=== PATIENT | female | born 1975 | race Two or more races ===

== ENCOUNTER 2022-12-30 12:22 | Inpatient (IN) | payer OTHER ==
[~2022-12-30] VITALS: Ht 162.6 cm; Wt 53.8 kg
[2022-12-30] MEDS ORDERED: SODIUM CHLORIDE 0.9% 1,000 ML IV ONE ×2 (14:30→20:00)
[2022-12-30] MEDS ORDERED: ACETAMINOPHEN 1000 MG/ISO-OSM 100 ML IV ONE (14:30)
[2022-12-30 14:53] LABS: BASOPHILS % (AUTO) 0.7 % (0.0-2.0); EOSINOPHILS % (AUTO) 0.2 % (1.0-6.0); HEMATOCRIT 24.7 % (36-46); HEMOGLOBIN 7.6 g/dL (12.0-16.0); LYMPHOCYTES # (AUTO) 1.5 K/uL (1.0-4.8); LYMPHOCYTES % (AUTO) 17.1 % (22.0-44.0); MEAN CORPUSCULAR HEMOGLOBIN 21.1 pg (26.0-34.0); MEAN CORPUSCULAR HGB CONC 30.7 G/dL (31.0-37.0); MEAN CORPUSCULAR VOLUME 69 fL (80-100); MONOCYTES # (AUTO) 0.7 K/uL (0.1-1.0); MONOCYTES % (AUTO) 8.2 % (2.0-9.0); NEUTROPHILS # (AUTO) 6.6 K/uL (1.8-7.7); NEUTROPHILS % (AUTO) 73.8 % (40.0-70.0); PLATELET COUNT (AUTO) 378 K/uL (150-450); RED BLOOD CELL COUNT(AUTO) 3.59 MIL/uL (4.00-5.20)
[2022-12-30] MEDS ORDERED: AZITHROMYCIN 500 MG/NS 250 ML IV ONE (15:00)
[2022-12-30] MEDS ORDERED: VANCOMYCIN HCL 1.25 GM in DEXTROSE 5%-WATER 250 ML IV ONE (15:00)
[2022-12-30] MEDS ORDERED: PIPERACILLIN/TAZO 3.375 GM/D5W 50 ML IV ONE (15:00)
[2022-12-30 15:10] LABS: ANION GAP 7 mmol/L (8-16); CALCIUM, TOTAL 8.4 mg/dL (8.8-10.5); CARBON DIOXIDE 28 mmol/L (22-29); CHLORIDE 100 mmol/L (98-107); CREATININE 0.86 mg/dL (0.60-1.30); GLOMERULAR FILTR. RATE CALC > 60 mL/min (>60); GLUCOSE,RANDOM 112 mg/dL (70-110); LACTIC ACID 0.6 mmol/L (0.4-2.0); POTASSIUM 4.1 mmol/L (3.5-5.1); SODIUM SERUM 135 mmol/L (136-145); TROPONIN I-HIGH SENSITIVITY 5 ng/L (<51); UREA NITROGEN, BLOOD 12 mg/dL (7-18)
[2022-12-30 15:13] LABS: ALANINE AMINOTRANSFERASE 17 U/L (12-78); ALKALINE PHOSPHATASE 71 U/L (46-116); ASPARTATE AMINOTRANSFERASE 20 U/L (15-37); BILIRUBIN,TOTAL 0.2 mg/dL (0.1-1.0)
[2022-12-30 15:57] LABS: RBC MORPHOLOGY COMMENT ABNORMAL RBC MORPH
[2022-12-30] MEDS ORDERED: ONDANSETRON HCL 4 MG/2 ML VIAL IVP PRN (18:30)
[2022-12-30] MEDS ORDERED: BISACODYL 10 MG RECTAL RECTAL SUPPOSITORY PR PRN (18:30)
[2022-12-30] MEDS ORDERED: MORPHINE SULFATE 2 MG/ML SYRINGE IVP PRN (18:30)
[2022-12-30] MEDS ORDERED: *CLINICAL-LEVOFLOXACIN IVPB DOSING CLINICAL ONE (18:30)
[2022-12-30] MEDS ORDERED: MAGNESIUM HYDROXIDE SUSPENSION 30 ML UDCUP PO PRN (18:30)
[2022-12-30] MEDS ORDERED: ZOLPIDEM TARTRATE 5 MG TABLET PO PRN (18:30)
[2022-12-30] MEDS ORDERED: HYDROCODONE/ACETAMINOPHEN 5-325 MG TABLET PO PRN (18:30)
[2022-12-30 20:52] LABS: COVID AG,FIA SOURCE NASAL SWAB
[2022-12-30 21:12] LABS: APPEARANCE,URINE HAZY (CLEAR); BILIRUBIN,URINE NEGATIVE (NEGATIVE); COLOR,URINE LIGHT YELLOW (YELLOW); GLUCOSE, URINE (UA) NEGATIVE (NEGATIVE); KETONES,URINE NEGATIVE (NEGATIVE); LEUKOCYTE ESTERASE ,URINE NEGATIVE (NEGATIVE); NITRATE,URINE NEGATIVE (NEGATIVE); OCCULT BLOOD,URINE LARGE (NEGATIVE); PROTEIN,URINE NEGATIVE (NEGATIVE); UROBILINOGEN,URINE <=1.0 mg/dL (<=1.0)
[2022-12-30 21:16] LABS: INFLUENZA TYPE A NEGATIVE FOR TYPE A (NEGATIVE); INFLUENZA TYPE B NEGATIVE FOR TYPE B (NEGATIVE); SARS-COV2 (COVID) ANTIGEN,FIA Negative (Negative)
[2022-12-30 21:20] LABS: AMPHET/METH SCREEN,URINE NEGATIVE (NEGATIVE); BARBITURATE SCREEN, URINE NEGATIVE (NEGATIVE); BENZODIAZEPINES SCREEN,URINE NEGATIVE (NEGATIVE); CANNABINOID SCREEN,URINE NEGATIVE (NEGATIVE); COCAINE SCREEN,URINE NEGATIVE (NEGATIVE); METHADONE SCREEN, URINE NEGATIVE (NEGATIVE); OPIATE SCREEN,URINE NEGATIVE (NEGATIVE); PHENCYCLIDINE SCREEN,URINE NEGATIVE (NEGATIVE)
[2022-12-30 21:21] LABS: ALCOHOL, URINE DRUG SCREEN NEGATIVE (NEGATIVE)
[2022-12-30 21:22] LABS: RBC,URINE >100 /HPF (0-2); SQUAMOUS EPITHELIAL CELL,UR Few /LPF (None Seen)
[2022-12-30 21:23] LABS: BACTERIA,URINE Rare /HPF (None Seen); WBC,URINE 0-2 /HPF (0-5)
[2022-12-30] MEDS: DOCUSATE SODIUM 100 MG CAPSULE PO SCH (21:31)
[2022-12-30] MEDS: HEPARIN SODIUM,PORCINE 5,000 UNITS/ML VIAL SQ SCH (23:18)
[2022-12-30 23:31] VITALS: BP 89/50; PULSE 67; RESP 18; TEMP 97.7
[2022-12-31] VITALS (7 sets, daily range): BP systolic 87–101; BP diastolic 45–60; PULSE 69–84; RESP 16–18; TEMP 98.6–99.3
[2022-12-31 07:37] LABS: BASOPHILS % (AUTO) 1.2 % (0.0-2.0); HEMATOCRIT 27.6 % (36-46); HEMOGLOBIN 8.4 g/dL (12.0-16.0); LYMPHOCYTES # (AUTO) 1.8 K/uL (1.0-4.8); MEAN CORPUSCULAR HEMOGLOBIN 21.4 pg (26.0-34.0); MEAN CORPUSCULAR HGB CONC 30.4 G/dL (31.0-37.0); MEAN CORPUSCULAR VOLUME 70 fL (80-100); MONOCYTES # (AUTO) 0.7 K/uL (0.1-1.0); MONOCYTES % (AUTO) 8.8 % (2.0-9.0); NEUTROPHILS # (AUTO) 5.3 K/uL (1.8-7.7); PLATELET COUNT (AUTO) 376 K/uL (150-450); RED BLOOD CELL COUNT(AUTO) 3.92 MIL/uL (4.00-5.20); RED CELL DISTRIBUTION WIDTH 18.9 % (11.5-14.5)
[2022-12-31 08:03] LABS: ANION GAP 6 mmol/L (8-16); CALCIUM, TOTAL 7.8 mg/dL (8.8-10.5); CARBON DIOXIDE 25 mmol/L (22-29); CHLORIDE 108 mmol/L (98-107); CREATININE 0.72 mg/dL (0.60-1.30); GLOMERULAR FILTR. RATE CALC > 60 mL/min (>60); GLUCOSE,RANDOM 84 mg/dL (70-110); POTASSIUM 4.3 mmol/L (3.5-5.1); SODIUM SERUM 139 mmol/L (136-145); UREA NITROGEN, BLOOD 9 mg/dL (7-18)
[2022-12-31] MEDS: DOCUSATE SODIUM 100 MG CAPSULE PO SCH ×2 (09:18→21:00)
[2022-12-31] MEDS: HEPARIN SODIUM,PORCINE 5,000 UNITS/ML VIAL SQ SCH ×2 (09:18→17:05)
[2022-12-31] MEDS: PANTOPRAZOLE SODIUM 40 MG DR TABLET PO SCH (09:18)
[2022-12-31] MEDS: LEVOFLOXACIN 750 MG/D5% WATER 150 ML IV SCH (12:35)
[2022-12-31] MEDS ORDERED: SODIUM CHLORIDE 0.9% 250 ML IV ONE (16:45)
[2023-01-01] VITALS (7 sets, daily range): BP systolic 86–112; BP diastolic 47–68; PULSE 71–85; RESP 18–20; TEMP 98–99.7
[2023-01-01] MEDS: HEPARIN SODIUM,PORCINE 5,000 UNITS/ML VIAL SQ SCH ×4 (00:12→23:37)
[2023-01-01 07:45] LABS: BASOPHILS % (AUTO) 0.9 % (0.0-2.0); HEMATOCRIT 25.6 % (36-46); LYMPHOCYTES % (AUTO) 22.9 % (22.0-44.0); MEAN CORPUSCULAR HEMOGLOBIN 21.4 pg (26.0-34.0); MEAN CORPUSCULAR HGB CONC 31.3 G/dL (31.0-37.0); MEAN CORPUSCULAR VOLUME 68 fL (80-100); MONOCYTES # (AUTO) 0.7 K/uL (0.1-1.0); MONOCYTES % (AUTO) 7.7 % (2.0-9.0); NEUTROPHILS # (AUTO) 5.9 K/uL (1.8-7.7); NEUTROPHILS % (AUTO) 67.5 % (40.0-70.0); PLATELET COUNT (AUTO) 444 K/uL (150-450); RED BLOOD CELL COUNT(AUTO) 3.75 MIL/uL (4.00-5.20); RED CELL DISTRIBUTION WIDTH 19.4 % (11.5-14.5); WHITE BLOOD COUNT (AUTO) 8.7 K/uL (4.5-11.0)
[2023-01-01 07:57] LABS: ALANINE AMINOTRANSFERASE 14 U/L (12-78); ALBUMIN 1.9 g/dL (3.4-5.0); ALKALINE PHOSPHATASE 70 U/L (46-116); ANION GAP 3 mmol/L (8-16); ASPARTATE AMINOTRANSFERASE 16 U/L (15-37); BILIRUBIN,TOTAL 0.1 mg/dL (0.1-1.0); CALCIUM, TOTAL 8.4 mg/dL (8.8-10.5); CARBON DIOXIDE 28 mmol/L (22-29); CHLORIDE 105 mmol/L (98-107); GLOMERULAR FILTR. RATE CALC > 60 mL/min (>60); GLUCOSE,RANDOM 91 mg/dL (70-110); RBC MORPHOLOGY COMMENT ABNORMAL RBC MORPH; SODIUM SERUM 136 mmol/L (136-145); TOTAL PROTEIN, SERUM 7.5 g/dL (6.4-8.2); UREA NITROGEN, BLOOD 6 mg/dL (7-18)
[2023-01-01] MEDS: DOCUSATE SODIUM 100 MG CAPSULE PO SCH ×2 (08:39→21:00)
[2023-01-01] MEDS: ACETAMINOPHEN 325 MG TABLET PO PRN (08:39)
[2023-01-01] MEDS: PANTOPRAZOLE SODIUM 40 MG DR TABLET PO SCH (08:40)
[2023-01-01] MEDS: LEVOFLOXACIN 750 MG/D5% WATER 150 ML IV SCH (13:18)
[2023-01-01] MEDS: ISONIAZID 300 MG TABLET PO SCH (16:51)
[2023-01-01] MEDS: PYRAZINAMIDE 500 MG TABLET PO SCH (16:54)
[2023-01-01] MEDS: PYRIDOXINE HCL 50 MG TABLET PO SCH (16:55)
[2023-01-01] MEDS: ETHAMBUTOL HCL 400 MG TABLET PO SCH (16:55)
[2023-01-01] MEDS: RIFAMPIN 300 MG CAPSULE PO SCH (17:03)
[2023-01-02 01:07] VITALS: BP 100/62; PULSE 91; RESP 18; TEMP 99.8
[2023-01-02 06:06] VITALS: BP 105/66; PULSE 77; RESP 18; TEMP 100.4
[2023-01-02] MEDS: ACETAMINOPHEN 325 MG TABLET PO PRN (06:08)
[2023-01-02 08:10] LABS: BASOPHILS % (AUTO) 0.7 % (0.0-2.0); EOSINOPHILS % (AUTO) 0.9 % (1.0-6.0); HEMATOCRIT 24.7 % (36-46); HEMOGLOBIN 7.6 g/dL (12.0-16.0); LYMPHOCYTES # (AUTO) 1.8 K/uL (1.0-4.8); LYMPHOCYTES % (AUTO) 19.6 % (22.0-44.0); MEAN CORPUSCULAR HGB CONC 30.7 G/dL (31.0-37.0); MEAN CORPUSCULAR VOLUME 68 fL (80-100); MONOCYTES # (AUTO) 0.6 K/uL (0.1-1.0); MONOCYTES % (AUTO) 6.9 % (2.0-9.0); NEUTROPHILS # (AUTO) 6.4 K/uL (1.8-7.7); NEUTROPHILS % (AUTO) 71.9 % (40.0-70.0); PLATELET COUNT (AUTO) 399 K/uL (150-450); RED BLOOD CELL COUNT(AUTO) 3.61 MIL/uL (4.00-5.20); RED CELL DISTRIBUTION WIDTH 19.3 % (11.5-14.5); WHITE BLOOD COUNT (AUTO) 8.9 K/uL (4.5-11.0)
[2023-01-02 08:27] VITALS: BP 95/58; PULSE 68; RESP 18; TEMP 98.3
[2023-01-02 08:52] LABS: ANION GAP 6 mmol/L (8-16); CALCIUM, TOTAL 8.4 mg/dL (8.8-10.5); CARBON DIOXIDE 28 mmol/L (22-29); CHLORIDE 103 mmol/L (98-107); CREATININE 0.96 mg/dL (0.60-1.30); GLOMERULAR FILTR. RATE CALC > 60 mL/min (>60); GLUCOSE,RANDOM 98 mg/dL (70-110); SODIUM SERUM 137 mmol/L (136-145); UREA NITROGEN, BLOOD 10 mg/dL (7-18)
[2023-01-02] MEDS: PANTOPRAZOLE SODIUM 40 MG DR TABLET PO SCH (09:04)
[2023-01-02] MEDS: RIFAMPIN 300 MG CAPSULE PO SCH (09:04)
[2023-01-02] MEDS: PYRAZINAMIDE 500 MG TABLET PO SCH (09:05)
[2023-01-02 09:06] LABS: RBC MORPHOLOGY COMMENT ABNORMAL RBC MORPH
[2023-01-02] MEDS: DOCUSATE SODIUM 100 MG CAPSULE PO SCH ×2 (09:06→22:43)
[2023-01-02] MEDS: ISONIAZID 300 MG TABLET PO SCH (09:06)
[2023-01-02] MEDS: PYRIDOXINE HCL 50 MG TABLET PO SCH (09:06)
[2023-01-02] MEDS: ETHAMBUTOL HCL 400 MG TABLET PO SCH (09:06)
[2023-01-02] MEDS: HEPARIN SODIUM,PORCINE 5,000 UNITS/ML VIAL SQ SCH ×2 (09:07→15:52)
[2023-01-02] MEDS: LEVOFLOXACIN 750 MG/D5% WATER 150 ML IV SCH (11:48)
[2023-01-02 12:19] VITALS: BP 101/60; PULSE 70; RESP 18; TEMP 98.5
[2023-01-02 20:00] VITALS: BP 108/58; PULSE 75; RESP 18; TEMP 98
[2023-01-03] VITALS: BP 88/54; PULSE 89; RESP 18; TEMP 99.4
[2023-01-03] MEDS: HEPARIN SODIUM,PORCINE 5,000 UNITS/ML VIAL SQ SCH ×3 (00:42→15:52)
[2023-01-03 04:00] VITALS: BP 92/63; PULSE 78; RESP 18; TEMP 99.1
[2023-01-03 08:52] VITALS: BP 107/60; PULSE 86; RESP 20; TEMP 98.7
[2023-01-03] MEDS: PYRIDOXINE HCL 50 MG TABLET PO SCH (08:52)
[2023-01-03] MEDS: ISONIAZID 300 MG TABLET PO SCH (08:52)
[2023-01-03] MEDS: PANTOPRAZOLE SODIUM 40 MG DR TABLET PO SCH (08:53)
[2023-01-03] MEDS: DOCUSATE SODIUM 100 MG CAPSULE PO SCH ×2 (08:53→21:00)
[2023-01-03] MEDS: RIFAMPIN 300 MG CAPSULE PO SCH (08:53)
[2023-01-03] MEDS: PYRAZINAMIDE 500 MG TABLET PO SCH (08:55)
[2023-01-03] MEDS: ETHAMBUTOL HCL 400 MG TABLET PO SCH (08:55)
[2023-01-03 12:43] VITALS: BP 94/49; PULSE 80; RESP 19; TEMP 98
[2023-01-03] MEDS: LEVOFLOXACIN 750 MG/D5% WATER 150 ML IV SCH (13:08)
[2023-01-03 16:38] VITALS: BP 101/58; PULSE 88; RESP 19; TEMP 97.7
[2023-01-03] MEDS: FERROUS SULFATE 325 MG EC TABLET PO SCH (18:46)
[2023-01-03 20:00] VITALS: BP 100/55; PULSE 81; RESP 18; TEMP 98.4
[2023-01-04] VITALS (8 sets, daily range): BP systolic 82–101; BP diastolic 45–69; PULSE 74–87; RESP 18–20; TEMP 97.6–98.6
[2023-01-04] MEDS: HEPARIN SODIUM,PORCINE 5,000 UNITS/ML VIAL SQ SCH ×4 (00:05→16:17)
[2023-01-04] MEDS: ACETAMINOPHEN 325 MG TABLET PO PRN (05:13)
[2023-01-04] MEDS: PANTOPRAZOLE SODIUM 40 MG DR TABLET PO SCH (08:59)
[2023-01-04] MEDS: RIFAMPIN 300 MG CAPSULE PO SCH (09:00)
[2023-01-04] MEDS: DOCUSATE SODIUM 100 MG CAPSULE PO SCH ×3 (09:00→20:56)
[2023-01-04] MEDS: FERROUS SULFATE 325 MG EC TABLET PO SCH ×2 (09:00→18:15)
[2023-01-04] MEDS: ISONIAZID 300 MG TABLET PO SCH (09:00)
[2023-01-04] MEDS: PYRIDOXINE HCL 50 MG TABLET PO SCH (09:01)
[2023-01-04] MEDS: ETHAMBUTOL HCL 400 MG TABLET PO SCH (09:01)
[2023-01-04] MEDS: PYRAZINAMIDE 500 MG TABLET PO SCH (09:02)
[2023-01-04] MEDS: LEVOFLOXACIN 750 MG/D5% WATER 150 ML IV SCH (12:58)
[2023-01-05] VITALS: BP 105/56; PULSE 83; RESP 16; TEMP 98.3
[2023-01-05] MEDS: HEPARIN SODIUM,PORCINE 5,000 UNITS/ML VIAL SQ SCH ×3 (00:26→16:00)
[2023-01-05 04:00] VITALS: BP 94/52; PULSE 78; RESP 16; TEMP 98.2
[2023-01-05 08:00] VITALS: BP 95/53; PULSE 75; RESP 18; TEMP 98.1
[2023-01-05] MEDS: FERROUS SULFATE 325 MG EC TABLET PO SCH ×2 (08:06→17:13)
[2023-01-05] MEDS: ISONIAZID 300 MG TABLET PO SCH (08:06)
[2023-01-05] MEDS: PYRIDOXINE HCL 50 MG TABLET PO SCH (08:06)
[2023-01-05] MEDS: RIFAMPIN 300 MG CAPSULE PO SCH (08:06)
[2023-01-05] MEDS: PANTOPRAZOLE SODIUM 40 MG DR TABLET PO SCH (08:06)
[2023-01-05] MEDS: DOCUSATE SODIUM 100 MG CAPSULE PO SCH ×2 (08:06→20:28)
[2023-01-05] MEDS: PYRAZINAMIDE 500 MG TABLET PO SCH (08:06)
[2023-01-05] MEDS: ETHAMBUTOL HCL 400 MG TABLET PO SCH (08:27)
[2023-01-05 12:00] VITALS: BP 102/68; PULSE 81; RESP 18; TEMP 98.1
[2023-01-05] MEDS: LEVOFLOXACIN 750 MG/D5% WATER 150 ML IV SCH (12:37)
[2023-01-05 15:28] VITALS: BP 95/55; PULSE 78; RESP 18; TEMP 97.9
[2023-01-05 20:00] VITALS: BP 103/57; PULSE 89; RESP 18; TEMP 98.2
[2023-01-05] MEDS: ACETAMINOPHEN 325 MG TABLET PO PRN (20:29)
[2023-01-06] VITALS: BP 109/66; PULSE 78; RESP 18; TEMP 98.2
[2023-01-06 05:00] VITALS: BP 95/53; PULSE 77; RESP 18; TEMP 98.2
[2023-01-06 08:31] VITALS: BP 97/60; PULSE 84; RESP 19; TEMP 98.3
[2023-01-06] MEDS: DOCUSATE SODIUM 100 MG CAPSULE PO SCH ×2 (09:00→21:00)
[2023-01-06] MEDS: PANTOPRAZOLE SODIUM 40 MG DR TABLET PO SCH (09:17)
[2023-01-06] MEDS: RIFAMPIN 300 MG CAPSULE PO SCH (09:17)
[2023-01-06] MEDS: FERROUS SULFATE 325 MG EC TABLET PO SCH ×2 (09:17→18:06)
[2023-01-06] MEDS: HEPARIN SODIUM,PORCINE 5,000 UNITS/ML VIAL SQ SCH ×4 (09:17→23:42)
[2023-01-06] MEDS: PYRAZINAMIDE 500 MG TABLET PO SCH (09:18)
[2023-01-06] MEDS: ISONIAZID 300 MG TABLET PO SCH (09:18)
[2023-01-06] MEDS: ETHAMBUTOL HCL 400 MG TABLET PO SCH (09:18)
[2023-01-06] MEDS: PYRIDOXINE HCL 50 MG TABLET PO SCH (09:18)
[2023-01-06 12:26] VITALS: BP 100/55; PULSE 83; RESP 19; TEMP 98.4
[2023-01-06] MEDS ORDERED: LEVOFLOXACIN 500 MG TABLET PO ONE (14:15)
[2023-01-06 16:40] VITALS: BP 98/50; PULSE 86; RESP 18; TEMP 98.4
[2023-01-06 20:00] VITALS: BP 111/56; PULSE 76; RESP 18; TEMP 98
[2023-01-07] VITALS (7 sets, daily range): BP systolic 94–111; BP diastolic 43–60; PULSE 74–90; RESP 18–20; TEMP 98–98.8
[2023-01-07] MEDS: HEPARIN SODIUM,PORCINE 5,000 UNITS/ML VIAL SQ SCH ×2 (10:04→17:22)
[2023-01-07] MEDS: PYRAZINAMIDE 500 MG TABLET PO SCH (10:05)
[2023-01-07] MEDS: PYRIDOXINE HCL 50 MG TABLET PO SCH (10:05)
[2023-01-07] MEDS: ISONIAZID 300 MG TABLET PO SCH (10:05)
[2023-01-07] MEDS: DOCUSATE SODIUM 100 MG CAPSULE PO SCH ×2 (10:05→21:00)
[2023-01-07] MEDS: ETHAMBUTOL HCL 400 MG TABLET PO SCH (10:05)
[2023-01-07] MEDS: FERROUS SULFATE 325 MG EC TABLET PO SCH ×2 (10:06→18:13)
[2023-01-07] MEDS: RIFAMPIN 300 MG CAPSULE PO SCH (10:06)
[2023-01-07] MEDS: PANTOPRAZOLE SODIUM 40 MG DR TABLET PO SCH (10:06)
[2023-01-07 10:47] LABS: BASOPHILS % (AUTO) 0.6 % (0.0-2.0); HEMOGLOBIN 8.4 g/dL (12.0-16.0); LYMPHOCYTES # (AUTO) 1.6 K/uL (1.0-4.8); LYMPHOCYTES % (AUTO) 19.4 % (22.0-44.0); MEAN CORPUSCULAR HEMOGLOBIN 21.3 pg (26.0-34.0); MEAN CORPUSCULAR HGB CONC 31.2 G/dL (31.0-37.0); MEAN CORPUSCULAR VOLUME 68 fL (80-100); MONOCYTES # (AUTO) 0.4 K/uL (0.1-1.0); MONOCYTES % (AUTO) 5.3 % (2.0-9.0); NEUTROPHILS # (AUTO) 5.8 K/uL (1.8-7.7); NEUTROPHILS % (AUTO) 70.7 % (40.0-70.0); PLATELET COUNT (AUTO) 566 K/uL (150-450); RED BLOOD CELL COUNT(AUTO) 3.95 MIL/uL (4.00-5.20); RED CELL DISTRIBUTION WIDTH 19.8 % (11.5-14.5); WHITE BLOOD COUNT (AUTO) 8.2 K/uL (4.5-11.0)
[2023-01-07 11:01] LABS: ALANINE AMINOTRANSFERASE 18 U/L (12-78); ALKALINE PHOSPHATASE 75 U/L (46-116); ANION GAP 4 mmol/L (8-16); ASPARTATE AMINOTRANSFERASE 14 U/L (15-37); BILIRUBIN,TOTAL 0.1 mg/dL (0.1-1.0); CALCIUM, TOTAL 9.2 mg/dL (8.8-10.5); CARBON DIOXIDE 32 mmol/L (22-29); CHLORIDE 100 mmol/L (98-107); CREATININE 0.93 mg/dL (0.60-1.30); GLOMERULAR FILTR. RATE CALC > 60 mL/min (>60); GLUCOSE,RANDOM 154 mg/dL (70-110); POTASSIUM 4.1 mmol/L (3.5-5.1); SODIUM SERUM 136 mmol/L (136-145); TOTAL PROTEIN, SERUM 8.1 g/dL (6.4-8.2); UREA NITROGEN, BLOOD 15 mg/dL (7-18)
[2023-01-08 00:01] VITALS: BP 94/56; PULSE 87; RESP 19; TEMP 98.7
[2023-01-08] MEDS: HEPARIN SODIUM,PORCINE 5,000 UNITS/ML VIAL SQ SCH ×4 (00:35→23:38)
[2023-01-08 07:44] VITALS: BP 98/59; PULSE 86; RESP 20; TEMP 98.7
[2023-01-08] MEDS: DOCUSATE SODIUM 100 MG CAPSULE PO SCH ×2 (09:08→21:00)
[2023-01-08] MEDS: FERROUS SULFATE 325 MG EC TABLET PO SCH ×2 (09:08→16:33)
[2023-01-08] MEDS: PANTOPRAZOLE SODIUM 40 MG DR TABLET PO SCH (09:08)
[2023-01-08] MEDS: ISONIAZID 300 MG TABLET PO SCH (09:09)
[2023-01-08] MEDS: PYRIDOXINE HCL 50 MG TABLET PO SCH (09:09)
[2023-01-08] MEDS: RIFAMPIN 300 MG CAPSULE PO SCH (09:09)
[2023-01-08] MEDS: ETHAMBUTOL HCL 400 MG TABLET PO SCH (09:09)
[2023-01-08] MEDS: PYRAZINAMIDE 500 MG TABLET PO SCH (09:10)
[2023-01-08] MEDS ORDERED: SODIUM CHLORIDE 3% 15 ML NEB SOLUTION NEB ONE (11:22)
[2023-01-08 11:45] VITALS: BP 98/57; PULSE 89; RESP 20; TEMP 98.5
[2023-01-08 16:00] VITALS: BP 101/66; PULSE 67; RESP 20; TEMP 98.9
[2023-01-09 00:30] VITALS: BP 96/59; PULSE 86; RESP 18; TEMP 98.8
[2023-01-09] MEDS: ACETAMINOPHEN 325 MG TABLET PO PRN (00:39)
[2023-01-09 05:45] VITALS: BP 91/55; PULSE 73; RESP 18; TEMP 97.9
[2023-01-09] MEDS: PANTOPRAZOLE SODIUM 40 MG DR TABLET PO SCH (07:51)
[2023-01-09] MEDS: HEPARIN SODIUM,PORCINE 5,000 UNITS/ML VIAL SQ SCH ×3 (07:51→23:34)
[2023-01-09] MEDS: PYRIDOXINE HCL 50 MG TABLET PO SCH (07:51)
[2023-01-09] MEDS: FERROUS SULFATE 325 MG EC TABLET PO SCH ×2 (07:51→16:07)
[2023-01-09] MEDS: ISONIAZID 300 MG TABLET PO SCH (07:52)
[2023-01-09] MEDS: ETHAMBUTOL HCL 400 MG TABLET PO SCH (07:52)
[2023-01-09] MEDS: RIFAMPIN 300 MG CAPSULE PO SCH (07:52)
[2023-01-09] MEDS: PYRAZINAMIDE 500 MG TABLET PO SCH (07:52)
[2023-01-09] MEDS: DOCUSATE SODIUM 100 MG CAPSULE PO SCH ×2 (08:01→21:00)
[2023-01-09 08:30] VITALS: BP 91/65; PULSE 82; RESP 20; TEMP 98.3
[2023-01-09 16:25] VITALS: BP 94/57; PULSE 87; RESP 20; TEMP 99
[2023-01-09 20:40] VITALS: BP 100/57; PULSE 85; RESP 18; TEMP 98.8
[2023-01-10 04:16] VITALS: BP 91/57; PULSE 84; RESP 18; TEMP 98.4
[2023-01-10 07:52] VITALS: BP 91/58; PULSE 85; RESP 20; TEMP 98.7
[2023-01-10] MEDS: HEPARIN SODIUM,PORCINE 5,000 UNITS/ML VIAL SQ SCH ×3 (08:36→23:57)
[2023-01-10] MEDS: FERROUS SULFATE 325 MG EC TABLET PO SCH ×2 (08:37→17:17)
[2023-01-10] MEDS: PYRAZINAMIDE 500 MG TABLET PO SCH (08:39)
[2023-01-10] MEDS: ETHAMBUTOL HCL 400 MG TABLET PO SCH (08:40)
[2023-01-10] MEDS: PYRIDOXINE HCL 50 MG TABLET PO SCH (08:41)
[2023-01-10] MEDS: RIFAMPIN 300 MG CAPSULE PO SCH (08:41)
[2023-01-10] MEDS: ISONIAZID 300 MG TABLET PO SCH (08:41)
[2023-01-10] MEDS: DOCUSATE SODIUM 100 MG CAPSULE PO SCH ×2 (08:43→21:38)
[2023-01-10] MEDS: PANTOPRAZOLE SODIUM 40 MG DR TABLET PO SCH (08:44)
[2023-01-10 15:11] VITALS: BP 100/60; PULSE 80; RESP 20; TEMP 98.4
[2023-01-10 21:47] VITALS: BP 91/57; PULSE 80; RESP 18; TEMP 98.7
[2023-01-11] MEDS: ACETAMINOPHEN 325 MG TABLET PO PRN
[2023-01-11 05:40] VITALS: BP 86/48; PULSE 68; RESP 18; TEMP 97.9
[2023-01-11] MEDS ORDERED: RINGERS SOLUTION,LACTATED 500 ML IV ONE (06:00)
[2023-01-11] MEDS ORDERED: RINGERS SOLUTION,LACTATED 1,000 ML IV ONE (06:04)
[2023-01-11 08:08] VITALS: BP 92/49; PULSE 54; RESP 18; TEMP 99.1
[2023-01-11] MEDS: PANTOPRAZOLE SODIUM 40 MG DR TABLET PO SCH (08:10)
[2023-01-11] MEDS: RIFAMPIN 300 MG CAPSULE PO SCH (08:10)
[2023-01-11] MEDS: DOCUSATE SODIUM 100 MG CAPSULE PO SCH ×2 (08:10→20:11)
[2023-01-11] MEDS: PYRIDOXINE HCL 50 MG TABLET PO SCH (08:10)
[2023-01-11] MEDS: FERROUS SULFATE 325 MG EC TABLET PO SCH ×2 (08:10→17:35)
[2023-01-11] MEDS: ISONIAZID 300 MG TABLET PO SCH (08:10)
[2023-01-11] MEDS: ETHAMBUTOL HCL 400 MG TABLET PO SCH (08:10)
[2023-01-11] MEDS: HEPARIN SODIUM,PORCINE 5,000 UNITS/ML VIAL SQ SCH ×2 (08:10→16:14)
[2023-01-11] MEDS: PYRAZINAMIDE 500 MG TABLET PO SCH (08:10)
[2023-01-11 16:31] VITALS: BP 95/47; PULSE 84; RESP 20; TEMP 98.8
[2023-01-11 20:06] VITALS: BP 91/49; PULSE 83; RESP 18; TEMP 98.8
[2023-01-12] MEDS: HEPARIN SODIUM,PORCINE 5,000 UNITS/ML VIAL SQ SCH ×3 (01:31→16:43)
[2023-01-12 05:11] VITALS: BP 103/53; PULSE 76; RESP 18; TEMP 98.6
[2023-01-12 08:08] VITALS: BP 105/56; PULSE 79; RESP 18; TEMP 99.2
[2023-01-12] MEDS: PYRAZINAMIDE 500 MG TABLET PO SCH (08:10)
[2023-01-12] MEDS: FERROUS SULFATE 325 MG EC TABLET PO SCH (08:11)
[2023-01-12] MEDS: RIFAMPIN 300 MG CAPSULE PO SCH (08:11)
[2023-01-12] MEDS: PANTOPRAZOLE SODIUM 40 MG DR TABLET PO SCH (08:11)
[2023-01-12] MEDS: PYRIDOXINE HCL 50 MG TABLET PO SCH (08:11)
[2023-01-12] MEDS: ETHAMBUTOL HCL 400 MG TABLET PO SCH (08:11)
[2023-01-12] MEDS: DOCUSATE SODIUM 100 MG CAPSULE PO SCH (08:11)
[2023-01-12] MEDS: ISONIAZID 300 MG TABLET PO SCH (08:11)
== END 2023-01-12 19:18 | DRG 177 ==
LOC: EMS 13:02 → AHU 16:24 → 5N 20:08 → 6N 01-09 00:05
PROVIDERS: ADMIT Internal Medicine; ATTEND Internal Medicine
DX: A15.0 Tuberculosis of lung (principal); E43 Unspecified severe protein-calorie malnutrition; Z68.1 Body mass index [BMI] 19.9 or less, adult; Z91.199 Patient's noncompliance with other medical treatment and regimen due to unspecified reason; D63.8 Anemia in other chronic diseases classified elsewhere; F29 Unspecified psychosis not due to a substance or known physiological condition; J18.9 Pneumonia, unspecified organism; Z20.822 Contact with and (suspected) exposure to COVID-19; Z91.148 Patient's other noncompliance with medication regimen for other reason
CPT/HCPCS: 70450; 71045; 71250; 80048; 80053; 80307; 81001; 83605; 83735; 84484; 84703; 85025; 87015; 87040; 87206; 87804; 93005; 94640; 99285; G0480; J0131; J0456; J1644; J1956; J2405; J2543; J3370; J7030; J7050; J7060; J7120; 36415-L1; 36415-TC

== ENCOUNTER 2023-01-18 19:33 | Inpatient (IN) | payer OTHER ==
[~2023-01-18] VITALS: Ht 160 cm; Wt 60.2 kg
[2023-01-18 23:28] LABS: ANION GAP 3 mmol/L (8-16); CALCIUM, TOTAL 8.9 mg/dL (8.8-10.5); CARBON DIOXIDE 30 mmol/L (22-29); CHLORIDE 106 mmol/L (98-107); CREATININE 0.75 mg/dL (0.60-1.30); GLOMERULAR FILTR. RATE CALC > 60 mL/min (>60); GLUCOSE,RANDOM 97 mg/dL (70-110); POTASSIUM 3.9 mmol/L (3.5-5.1); SODIUM SERUM 139 mmol/L (136-145); UREA NITROGEN, BLOOD 13 mg/dL (7-18)
[2023-01-18 23:31] LABS: ALANINE AMINOTRANSFERASE 14 U/L (12-78); ALBUMIN 2.1 g/dL (3.4-5.0); ALKALINE PHOSPHATASE 68 U/L (46-116); ASPARTATE AMINOTRANSFERASE 14 U/L (15-37); BILIRUBIN,TOTAL 0.1 mg/dL (0.1-1.0); TOTAL PROTEIN, SERUM 7.8 g/dL (6.4-8.2)
[2023-01-18 23:33] LABS: EOSINOPHILS % (AUTO) 5.8 % (1.0-6.0); HEMATOCRIT 27.8 % (36-46); HEMOGLOBIN 8.6 g/dL (12.0-16.0); LYMPHOCYTES # (AUTO) 1.8 K/uL (1.0-4.8); LYMPHOCYTES % (AUTO) 30.9 % (22.0-44.0); MEAN CORPUSCULAR HEMOGLOBIN 22.2 pg (26.0-34.0); MEAN CORPUSCULAR HGB CONC 30.7 G/dL (31.0-37.0); MEAN CORPUSCULAR VOLUME 72 fL (80-100); MONOCYTES # (AUTO) 0.5 K/uL (0.1-1.0); MONOCYTES % (AUTO) 9.3 % (2.0-9.0); NEUTROPHILS # (AUTO) 3.1 K/uL (1.8-7.7); PLATELET COUNT (AUTO) 378 K/uL (150-450); RED BLOOD CELL COUNT(AUTO) 3.86 MIL/uL (4.00-5.20); RED CELL DISTRIBUTION WIDTH 25.6 % (11.5-14.5); WHITE BLOOD COUNT (AUTO) 5.8 K/uL (4.5-11.0)
[2023-01-19 00:18] LABS: RBC MORPHOLOGY COMMENT DIMORPHIC RBC
[2023-01-19] MEDS: HEPARIN SODIUM,PORCINE 5,000 UNITS/ML VIAL SQ SCH ×3 (02:27→16:40)
[2023-01-19 03:27] LABS: COVID AG,FIA SOURCE NASAL SWAB
[2023-01-19 03:51] LABS: SARS-COV2 (COVID) ANTIGEN,FIA Negative (Negative)
[2023-01-19] MEDS: DOCUSATE SODIUM 100 MG CAPSULE PO SCH ×2 (07:30→20:47)
[2023-01-19 08:11] LABS: BASOPHILS % (AUTO) 0.6 % (0.0-2.0); EOSINOPHILS % (AUTO) 5.7 % (1.0-6.0); HEMATOCRIT 29.3 % (36-46); HEMOGLOBIN 9.1 g/dL (12.0-16.0); LYMPHOCYTES # (AUTO) 1.9 K/uL (1.0-4.8); LYMPHOCYTES % (AUTO) 27.9 % (22.0-44.0); MEAN CORPUSCULAR HEMOGLOBIN 22.4 pg (26.0-34.0); MEAN CORPUSCULAR VOLUME 72 fL (80-100); MONOCYTES # (AUTO) 0.5 K/uL (0.1-1.0); NEUTROPHILS % (AUTO) 58.8 % (40.0-70.0); PLATELET COUNT (AUTO) 400 K/uL (150-450); RED BLOOD CELL COUNT(AUTO) 4.05 MIL/uL (4.00-5.20); RED CELL DISTRIBUTION WIDTH 25.8 % (11.5-14.5); WHITE BLOOD COUNT (AUTO) 6.8 K/uL (4.5-11.0)
[2023-01-19 08:15] LABS: RBC MORPHOLOGY COMMENT DIMORPHIC RBC
[2023-01-19 08:23] LABS: ANION GAP 9 mmol/L (8-16); CALCIUM, TOTAL 9.2 mg/dL (8.8-10.5); CARBON DIOXIDE 27 mmol/L (22-29); CHLORIDE 104 mmol/L (98-107); CREATININE 0.77 mg/dL (0.60-1.30); GLOMERULAR FILTR. RATE CALC > 60 mL/min (>60); GLUCOSE,RANDOM 108 mg/dL (70-110); POTASSIUM 3.6 mmol/L (3.5-5.1); SODIUM SERUM 140 mmol/L (136-145); UREA NITROGEN, BLOOD 11 mg/dL (7-18)
[2023-01-19] MEDS: ETHAMBUTOL HCL 400 MG TABLET PO SCH ×2 (08:32→08:45)
[2023-01-19] MEDS: PYRIDOXINE HCL 50 MG TABLET PO SCH (08:36)
[2023-01-19] MEDS: RIFAMPIN 300 MG CAPSULE PO SCH (08:36)
[2023-01-19] MEDS: FERROUS SULFATE 300 MG/5 ML LIQUID UDCUP PO SCH ×3 (08:36→17:46)
[2023-01-19 15:53] VITALS: BP 101/60; PULSE 71; RESP 18; TEMP 98.3
[2023-01-19 20:00] VITALS: BP 97/58; PULSE 79; RESP 18; TEMP 98.9
[2023-01-20] MEDS: HEPARIN SODIUM,PORCINE 5,000 UNITS/ML VIAL SQ SCH ×3 (00:14→17:41)
[2023-01-20 00:31] VITALS: BP 96/59; PULSE 77; RESP 18; TEMP 98.6
[2023-01-20 04:26] VITALS: BP 98/62; PULSE 77; RESP 17; TEMP 98.4
[2023-01-20 08:15] VITALS: BP 94/54; PULSE 77; RESP 19; TEMP 99.4
[2023-01-20] MEDS: PYRIDOXINE HCL 50 MG TABLET PO SCH (10:06)
[2023-01-20] MEDS: RIFAMPIN 300 MG CAPSULE PO SCH (10:06)
[2023-01-20] MEDS: FERROUS SULFATE 300 MG/5 ML LIQUID UDCUP PO SCH ×4 (10:06→17:54)
[2023-01-20] MEDS: ETHAMBUTOL HCL 400 MG TABLET PO SCH (10:07)
[2023-01-20] MEDS: PYRAZINAMIDE 500 MG TABLET PO SCH (10:07)
[2023-01-20] MEDS: DOCUSATE SODIUM 100 MG CAPSULE PO SCH ×2 (10:42→20:44)
[2023-01-20 12:11] VITALS: BP 101/59; PULSE 75; RESP 18; TEMP 98.9
[2023-01-20 18:16] VITALS: BP 90/51; PULSE 81; RESP 18; TEMP 98.2
[2023-01-20 20:00] VITALS: BP 93/49; PULSE 74; RESP 17; TEMP 98.5
[2023-01-20] MEDS: OLANZapine 5 MG TABLET PO SCH (21:07)
[2023-01-21] VITALS (7 sets, daily range): BP systolic 91–95; BP diastolic 53–65; PULSE 71–86; RESP 16–19; TEMP 97.8–98.6
[2023-01-21] MEDS: HEPARIN SODIUM,PORCINE 5,000 UNITS/ML VIAL SQ SCH ×4 (00:40→23:07)
[2023-01-21] MEDS: DOCUSATE SODIUM 100 MG CAPSULE PO SCH ×2 (09:00→22:46)
[2023-01-21] MEDS: FERROUS SULFATE 300 MG/5 ML LIQUID UDCUP PO SCH ×2 (09:07→12:00)
[2023-01-21] MEDS: ETHAMBUTOL HCL 400 MG TABLET PO SCH (09:08)
[2023-01-21] MEDS: RIFAMPIN 300 MG CAPSULE PO SCH (09:08)
[2023-01-21] MEDS: PYRIDOXINE HCL 50 MG TABLET PO SCH (09:08)
[2023-01-21] MEDS: ONDANSETRON HCL 4 MG/2 ML VIAL IVP PRN (15:58)
[2023-01-21] MEDS: OLANZapine 5 MG TABLET PO SCH (22:47)
[2023-01-21] MEDS: ACETAMINOPHEN 325 MG TABLET PO PRN (23:11)
[2023-01-22 04:42] VITALS: BP 98/54; PULSE 68; RESP 18; TEMP 97.9
[2023-01-22 06:57] LABS: EOSINOPHILS % (AUTO) 10.2 % (1.0-6.0); HEMATOCRIT 28.2 % (36-46); HEMOGLOBIN 8.8 g/dL (12.0-16.0); LYMPHOCYTES # (AUTO) 1.6 K/uL (1.0-4.8); LYMPHOCYTES % (AUTO) 30.5 % (22.0-44.0); MEAN CORPUSCULAR HEMOGLOBIN 22.9 pg (26.0-34.0); MEAN CORPUSCULAR HGB CONC 31.2 G/dL (31.0-37.0); MEAN CORPUSCULAR VOLUME 73 fL (80-100); MONOCYTES # (AUTO) 0.5 K/uL (0.1-1.0); NEUTROPHILS # (AUTO) 2.5 K/uL (1.8-7.7); NEUTROPHILS % (AUTO) 48.3 % (40.0-70.0); PLATELET COUNT (AUTO) 291 K/uL (150-450); RED BLOOD CELL COUNT(AUTO) 3.85 MIL/uL (4.00-5.20); RED CELL DISTRIBUTION WIDTH 25.5 % (11.5-14.5); WHITE BLOOD COUNT (AUTO) 5.1 K/uL (4.5-11.0)
[2023-01-22 07:14] LABS: ANION GAP 8 mmol/L (8-16); CALCIUM, TOTAL 9.4 mg/dL (8.8-10.5); CARBON DIOXIDE 28 mmol/L (22-29); CHLORIDE 102 mmol/L (98-107); CREATININE 0.77 mg/dL (0.60-1.30); GLOMERULAR FILTR. RATE CALC > 60 mL/min (>60); GLUCOSE,RANDOM 98 mg/dL (70-110); POTASSIUM 4.2 mmol/L (3.5-5.1); SODIUM SERUM 138 mmol/L (136-145); UREA NITROGEN, BLOOD 18 mg/dL (7-18)
[2023-01-22 07:20] LABS: RBC MORPHOLOGY COMMENT DIMORPHIC RBC
[2023-01-22 08:29] VITALS: BP 86/58; PULSE 71; RESP 18; TEMP 97.9
[2023-01-22] MEDS: FERROUS SULFATE 300 MG/5 ML LIQUID UDCUP PO SCH ×3 (09:21→18:00)
[2023-01-22] MEDS: DOCUSATE SODIUM 100 MG CAPSULE PO SCH ×2 (09:22→20:48)
[2023-01-22] MEDS: HEPARIN SODIUM,PORCINE 5,000 UNITS/ML VIAL SQ SCH ×2 (09:22→17:21)
[2023-01-22] MEDS: PYRIDOXINE HCL 50 MG TABLET PO SCH (09:23)
[2023-01-22] MEDS: RIFAMPIN 300 MG CAPSULE PO SCH (09:30)
[2023-01-22] MEDS: PYRAZINAMIDE 500 MG TABLET PO SCH (09:31)
[2023-01-22] MEDS: ETHAMBUTOL HCL 400 MG TABLET PO SCH (09:32)
[2023-01-22 12:31] VITALS: BP 88/56; PULSE 70; RESP 18; TEMP 98
[2023-01-22 18:18] VITALS: BP 93/58; PULSE 70; RESP 18; TEMP 98
[2023-01-22 20:17] VITALS: BP 117/55; PULSE 94; RESP 18; TEMP 98.4
[2023-01-22] MEDS: OLANZapine 5 MG TABLET PO SCH (20:48)
[2023-01-22] MEDS: ACETAMINOPHEN 325 MG TABLET PO PRN (20:48)
[2023-01-23] MEDS: HEPARIN SODIUM,PORCINE 5,000 UNITS/ML VIAL SQ SCH ×4 (00:27→23:28)
[2023-01-23 00:44] VITALS: BP 107/61; PULSE 78; RESP 18; TEMP 98.3
[2023-01-23 05:52] VITALS: BP 100/56; PULSE 80; RESP 18; TEMP 98.3
[2023-01-23 08:00] VITALS: BP 91/65; PULSE 83; RESP 18; TEMP 98.2
[2023-01-23] MEDS: FERROUS SULFATE 300 MG/5 ML LIQUID UDCUP PO SCH ×3 (08:00→18:00)
[2023-01-23] MEDS: PYRIDOXINE HCL 50 MG TABLET PO SCH (08:22)
[2023-01-23] MEDS: RIFAMPIN 300 MG CAPSULE PO SCH (08:22)
[2023-01-23] MEDS: DOCUSATE SODIUM 100 MG CAPSULE PO SCH ×2 (08:23→20:36)
[2023-01-23] MEDS: ETHAMBUTOL HCL 400 MG TABLET PO SCH ×2 (08:35→08:46)
[2023-01-23 08:47] LABS: BASOPHILS % (AUTO) 1.4 % (0.0-2.0); EOSINOPHILS % (AUTO) 9.7 % (1.0-6.0); HEMATOCRIT 28.9 % (36-46); HEMOGLOBIN 8.9 g/dL (12.0-16.0); LYMPHOCYTES # (AUTO) 1.5 K/uL (1.0-4.8); LYMPHOCYTES % (AUTO) 20.7 % (22.0-44.0); MEAN CORPUSCULAR HEMOGLOBIN 22.5 pg (26.0-34.0); MEAN CORPUSCULAR HGB CONC 30.7 G/dL (31.0-37.0); MEAN CORPUSCULAR VOLUME 73 fL (80-100); MONOCYTES # (AUTO) 0.5 K/uL (0.1-1.0); MONOCYTES % (AUTO) 6.4 % (2.0-9.0); NEUTROPHILS # (AUTO) 4.5 K/uL (1.8-7.7); NEUTROPHILS % (AUTO) 61.8 % (40.0-70.0); PLATELET COUNT (AUTO) 316 K/uL (150-450); RED BLOOD CELL COUNT(AUTO) 3.95 MIL/uL (4.00-5.20); RED CELL DISTRIBUTION WIDTH 25.7 % (11.5-14.5); WHITE BLOOD COUNT (AUTO) 7.2 K/uL (4.5-11.0)
[2023-01-23 10:18] LABS: RBC MORPHOLOGY COMMENT DIMORPHIC RBC
[2023-01-23] MEDS: OLANZapine 5 MG TABLET PO SCH (20:36)
[2023-01-23 21:18] VITALS: BP 101/56; PULSE 82; RESP 18; TEMP 99.6
[2023-01-23 23:33] VITALS: BP 97/68; PULSE 75; RESP 18; TEMP 99.2
[2023-01-24 04:58] VITALS: BP 97/63; PULSE 80; RESP 18; TEMP 98.2
[2023-01-24 07:16] LABS: BASOPHILS % (AUTO) 0.3 % (0.0-2.0); EOSINOPHILS % (AUTO) 11.5 % (1.0-6.0); HEMOGLOBIN 8.8 g/dL (12.0-16.0); LYMPHOCYTES # (AUTO) 1.6 K/uL (1.0-4.8); LYMPHOCYTES % (AUTO) 24.9 % (22.0-44.0); MEAN CORPUSCULAR HEMOGLOBIN 22.6 pg (26.0-34.0); MEAN CORPUSCULAR HGB CONC 31.4 G/dL (31.0-37.0); MEAN CORPUSCULAR VOLUME 72 fL (80-100); MONOCYTES # (AUTO) 0.5 K/uL (0.1-1.0); MONOCYTES % (AUTO) 7.2 % (2.0-9.0); NEUTROPHILS # (AUTO) 3.6 K/uL (1.8-7.7); NEUTROPHILS % (AUTO) 56.1 % (40.0-70.0); PLATELET COUNT (AUTO) 308 K/uL (150-450); RED BLOOD CELL COUNT(AUTO) 3.89 MIL/uL (4.00-5.20); RED CELL DISTRIBUTION WIDTH 25.2 % (11.5-14.5); WHITE BLOOD COUNT (AUTO) 6.4 K/uL (4.5-11.0)
[2023-01-24 08:00] VITALS: BP 102/60; PULSE 87; RESP 20; TEMP 98.2
[2023-01-24 08:09] LABS: RBC MORPHOLOGY COMMENT DIMORPHIC RBC
[2023-01-24] MEDS: HEPARIN SODIUM,PORCINE 5,000 UNITS/ML VIAL SQ SCH ×2 (08:47→16:34)
[2023-01-24] MEDS: RIFAMPIN 300 MG CAPSULE PO SCH (08:47)
[2023-01-24] MEDS: DOCUSATE SODIUM 100 MG CAPSULE PO SCH ×2 (08:47→21:00)
[2023-01-24] MEDS: ETHAMBUTOL HCL 400 MG TABLET PO SCH (08:48)
[2023-01-24] MEDS: PYRAZINAMIDE 500 MG TABLET PO SCH (08:48)
[2023-01-24] MEDS: PYRIDOXINE HCL 50 MG TABLET PO SCH (08:48)
[2023-01-24] MEDS: FERROUS SULFATE 300 MG/5 ML LIQUID UDCUP PO SCH ×2 (08:48→11:46)
[2023-01-24 12:00] VITALS: BP 96/64; PULSE 86; RESP 18; TEMP 98.1
[2023-01-24 17:52] VITALS: BP 97/56; PULSE 78; RESP 20; TEMP 98.3
[2023-01-24 20:40] VITALS: BP 109/49; PULSE 97; RESP 18; TEMP 98.8
[2023-01-24] MEDS: OLANZapine 5 MG TABLET PO SCH (21:00)
[2023-01-25] VITALS: BP 102/53; PULSE 96; RESP 18; TEMP 99.1
[2023-01-25] MEDS: ONDANSETRON HCL 4 MG/2 ML VIAL IVP PRN (02:10)
[2023-01-25] MEDS: ACETAMINOPHEN 325 MG TABLET PO PRN (02:10)
[2023-01-25 06:22] VITALS: BP 94/56; PULSE 68; RESP 16; TEMP 97.9
[2023-01-25] MEDS: HEPARIN SODIUM,PORCINE 5,000 UNITS/ML VIAL SQ SCH ×4 (08:00→23:08)
[2023-01-25] MEDS: ETHAMBUTOL HCL 400 MG TABLET PO SCH (10:03)
[2023-01-25] MEDS: RIFAMPIN 300 MG CAPSULE PO SCH (10:03)
[2023-01-25] MEDS: PYRIDOXINE HCL 50 MG TABLET PO SCH (10:06)
[2023-01-25] MEDS: DOCUSATE SODIUM 100 MG CAPSULE PO SCH ×2 (10:06→21:00)
[2023-01-25 21:01] VITALS: BP 110/61; PULSE 89; RESP 20; TEMP 98.4
[2023-01-25] MEDS: OLANZapine 5 MG TABLET PO SCH (23:05)
[2023-01-25 23:30] VITALS: BP 108/76; PULSE 94; RESP 20; TEMP 98.8
[2023-01-26 04:40] VITALS: BP 99/57; PULSE 87; RESP 18; TEMP 98.2
[2023-01-26 08:14] VITALS: BP 96/71; PULSE 75; RESP 20; TEMP 98
[2023-01-26] MEDS: HEPARIN SODIUM,PORCINE 5,000 UNITS/ML VIAL SQ SCH ×2 (09:08→14:31)
[2023-01-26] MEDS: PYRIDOXINE HCL 50 MG TABLET PO SCH (09:09)
[2023-01-26] MEDS: ETHAMBUTOL HCL 400 MG TABLET PO SCH (09:09)
[2023-01-26] MEDS: RIFAMPIN 300 MG CAPSULE PO SCH (09:10)
[2023-01-26] MEDS: PYRAZINAMIDE 500 MG TABLET PO SCH (09:10)
[2023-01-26] MEDS: DOCUSATE SODIUM 100 MG CAPSULE PO SCH ×2 (09:10→20:39)
[2023-01-26] MEDS ORDERED: ISONIAZID 300 MG TABLET PO ONE (13:15)
[2023-01-26 14:29] VITALS: BP 105/58; PULSE 72; RESP 18; TEMP 98.4
[2023-01-26 20:00] VITALS: BP 99/67; PULSE 96; RESP 19; TEMP 98.5
[2023-01-26] MEDS ORDERED: SODIUM CHLORIDE 3% 15 ML NEB SOLUTION NEB ONE (20:13)
[2023-01-26] MEDS: OLANZapine 5 MG TABLET PO SCH (20:37)
[2023-01-27] VITALS: BP 102/70; PULSE 97; RESP 18; TEMP 98.1
[2023-01-27 04:00] VITALS: BP 98/62; PULSE 81; RESP 18; TEMP 98.3
[2023-01-27 07:29] VITALS: BP 100/69; PULSE 97; RESP 18; TEMP 98.4
[2023-01-27] MEDS: HEPARIN SODIUM,PORCINE 5,000 UNITS/ML VIAL SQ SCH ×4 (09:44→23:28)
[2023-01-27] MEDS: ETHAMBUTOL HCL 400 MG TABLET PO SCH (09:46)
[2023-01-27] MEDS: RIFAMPIN 300 MG CAPSULE PO SCH (09:46)
[2023-01-27] MEDS: ISONIAZID 300 MG TABLET PO SCH (09:46)
[2023-01-27] MEDS: PYRIDOXINE HCL 50 MG TABLET PO SCH (09:46)
[2023-01-27] MEDS: PYRAZINAMIDE 500 MG TABLET PO SCH (09:47)
[2023-01-27] MEDS: DOCUSATE SODIUM 100 MG CAPSULE PO SCH ×2 (09:47→21:00)
[2023-01-27 12:29] VITALS: BP 92/36; PULSE 71; RESP 19; TEMP 98.2
[2023-01-27 15:55] VITALS: BP 98/64; PULSE 90; RESP 18; TEMP 97.7
[2023-01-27 20:00] VITALS: BP 86/52; PULSE 87; RESP 18; TEMP 98
[2023-01-27] MEDS: OLANZapine 5 MG TABLET PO SCH (21:30)
[2023-01-28] VITALS: BP 88/60; PULSE 92; RESP 18; TEMP 97.7
[2023-01-28 05:00] VITALS: BP 101/58; PULSE 83; RESP 16; TEMP 98.4
[2023-01-28 07:50] VITALS: BP 96/51; PULSE 84; RESP 17; TEMP 98.5
[2023-01-28] MEDS: DOCUSATE SODIUM 100 MG CAPSULE PO SCH ×2 (09:00→21:00)
[2023-01-28] MEDS: RIFAMPIN 300 MG CAPSULE PO SCH (09:19)
[2023-01-28] MEDS: ISONIAZID 300 MG TABLET PO SCH (09:19)
[2023-01-28] MEDS: HEPARIN SODIUM,PORCINE 5,000 UNITS/ML VIAL SQ SCH ×2 (09:19→16:55)
[2023-01-28] MEDS: PYRAZINAMIDE 500 MG TABLET PO SCH (09:20)
[2023-01-28] MEDS: OLANZapine 5 MG TABLET PO SCH (09:24)
[2023-01-28] MEDS: PYRIDOXINE HCL 50 MG TABLET PO SCH (09:24)
[2023-01-28] MEDS: ETHAMBUTOL HCL 400 MG TABLET PO SCH (09:25)
[2023-01-28 11:58] VITALS: BP 103/67; PULSE 75; RESP 17; TEMP 97.9
[2023-01-28 15:04] VITALS: BP 101/75; PULSE 75; RESP 17; TEMP 98.4
[2023-01-28 20:55] VITALS: BP 99/60; PULSE 95; RESP 18; TEMP 98.3
[2023-01-29 00:41] VITALS: BP 95/49; PULSE 93; RESP 18; TEMP 97.5
[2023-01-29] MEDS: ACETAMINOPHEN 325 MG TABLET PO PRN (03:51)
[2023-01-29 04:54] VITALS: BP 81/56; PULSE 93; RESP 18; TEMP 97.7
[2023-01-29 07:41] VITALS: BP 90/53; PULSE 73; RESP 18; TEMP 97.8
[2023-01-29] MEDS: PYRAZINAMIDE 500 MG TABLET PO SCH (08:43)
[2023-01-29] MEDS: ETHAMBUTOL HCL 400 MG TABLET PO SCH (08:43)
[2023-01-29] MEDS: HEPARIN SODIUM,PORCINE 5,000 UNITS/ML VIAL SQ SCH ×3 (08:44→15:27)
[2023-01-29] MEDS: ISONIAZID 300 MG TABLET PO SCH (08:44)
[2023-01-29] MEDS: PYRIDOXINE HCL 50 MG TABLET PO SCH (08:44)
[2023-01-29] MEDS: DOCUSATE SODIUM 100 MG CAPSULE PO SCH ×2 (08:44→20:51)
[2023-01-29] MEDS: RIFAMPIN 300 MG CAPSULE PO SCH (08:44)
[2023-01-29 12:08] VITALS: BP 86/55; PULSE 68; RESP 18; TEMP 97.7
[2023-01-29 16:00] VITALS: BP 89/59; PULSE 83; RESP 18; TEMP 97.8
[2023-01-29] MEDS: OLANZapine 5 MG TABLET PO SCH (20:52)
[2023-01-29 20:55] VITALS: BP 104/63; PULSE 86; RESP 19; TEMP 98.2
[2023-01-30 00:50] VITALS: BP 99/62; PULSE 93; RESP 19; TEMP 98.3
[2023-01-30 05:30] VITALS: BP 92/61; PULSE 81; RESP 17; TEMP 98
[2023-01-30 08:00] VITALS: BP 98/54; PULSE 84; RESP 18; TEMP 98.1
[2023-01-30] MEDS: DOCUSATE SODIUM 100 MG CAPSULE PO SCH ×2 (08:39→21:00)
[2023-01-30] MEDS: RIFAMPIN 300 MG CAPSULE PO SCH (08:39)
[2023-01-30] MEDS: PYRAZINAMIDE 500 MG TABLET PO SCH (08:39)
[2023-01-30] MEDS: HEPARIN SODIUM,PORCINE 5,000 UNITS/ML VIAL SQ SCH ×4 (08:41→23:46)
[2023-01-30] MEDS: ETHAMBUTOL HCL 400 MG TABLET PO SCH (08:41)
[2023-01-30] MEDS: PYRIDOXINE HCL 50 MG TABLET PO SCH (08:41)
[2023-01-30] MEDS: ISONIAZID 300 MG TABLET PO SCH (08:41)
[2023-01-30 12:00] VITALS: BP 89/61; PULSE 87; RESP 18; TEMP 98
[2023-01-30 15:43] VITALS: BP 99/59; PULSE 87; RESP 16; TEMP 98.3
[2023-01-30 20:05] VITALS: BP 92/53; PULSE 91; RESP 18; TEMP 98.2
[2023-01-30] MEDS: OLANZapine 5 MG TABLET PO SCH (21:18)
[2023-01-30] MEDS ORDERED: SODIUM CHLORIDE 3% 15 ML NEB SOLUTION NEB ONE (22:45)
[2023-01-31 01:35] VITALS: BP 101/70; PULSE 87; RESP 18; TEMP 98.5
[2023-01-31 05:43] VITALS: BP 87/50; PULSE 86; RESP 18; TEMP 98.2
[2023-01-31 08:00] VITALS: BP 84/54; PULSE 87; RESP 18; TEMP 98.2
[2023-01-31] MEDS: HEPARIN SODIUM,PORCINE 5,000 UNITS/ML VIAL SQ SCH ×2 (08:21→16:33)
[2023-01-31] MEDS: ETHAMBUTOL HCL 400 MG TABLET PO SCH (08:22)
[2023-01-31] MEDS: ISONIAZID 300 MG TABLET PO SCH (08:22)
[2023-01-31] MEDS: RIFAMPIN 300 MG CAPSULE PO SCH (08:22)
[2023-01-31] MEDS: DOCUSATE SODIUM 100 MG CAPSULE PO SCH ×2 (08:22→20:31)
[2023-01-31] MEDS: PYRAZINAMIDE 500 MG TABLET PO SCH (08:22)
[2023-01-31] MEDS: PYRIDOXINE HCL 50 MG TABLET PO SCH (08:23)
[2023-01-31 12:03] VITALS: BP 95/60; PULSE 89; RESP 18; TEMP 98.2
[2023-01-31 17:45] VITALS: BP 99/61; PULSE 84; RESP 18; TEMP 98.4
[2023-01-31 20:00] VITALS: BP 96/54; PULSE 95; RESP 18; TEMP 98.2
[2023-01-31] MEDS: OLANZapine 5 MG TABLET PO SCH (20:31)
[2023-01-31] MEDS ORDERED: SODIUM CHLORIDE 3% 15 ML NEB SOLUTION NEB ONE (22:57)
[2023-02-01] VITALS: BP 84/54; PULSE 89; RESP 18; TEMP 98.7
[2023-02-01] MEDS: HEPARIN SODIUM,PORCINE 5,000 UNITS/ML VIAL SQ SCH ×3 (01:07→16:45)
[2023-02-01 04:00] VITALS: BP 86/47; PULSE 84; RESP 16; TEMP 98.2
[2023-02-01 10:16] VITALS: BP 96/50; PULSE 93; RESP 18; TEMP 98.4
[2023-02-01] MEDS: ISONIAZID 300 MG TABLET PO SCH (10:37)
[2023-02-01] MEDS: PYRAZINAMIDE 500 MG TABLET PO SCH (10:37)
[2023-02-01] MEDS: PYRIDOXINE HCL 50 MG TABLET PO SCH (10:37)
[2023-02-01] MEDS: ETHAMBUTOL HCL 400 MG TABLET PO SCH (10:38)
[2023-02-01] MEDS: DOCUSATE SODIUM 100 MG CAPSULE PO SCH ×2 (10:38→21:17)
[2023-02-01] MEDS: RIFAMPIN 300 MG CAPSULE PO SCH (10:38)
[2023-02-01] MEDS ORDERED: 0.9% SODIUM CHLORIDE 15 ML NEB SOLUTION NEB ONE (13:46)
[2023-02-01 16:03] VITALS: BP 98/55; PULSE 86; RESP 18; TEMP 98.6
[2023-02-01 20:00] VITALS: BP 102/65; PULSE 93; RESP 18; TEMP 98.5
[2023-02-01] MEDS: OLANZapine 5 MG TABLET PO SCH (21:17)
[2023-02-01] MEDS: ACETAMINOPHEN 325 MG TABLET PO PRN (21:18)
[2023-02-02] VITALS: BP 90/50; PULSE 59; RESP 16; TEMP 98.1
[2023-02-02] MEDS: HEPARIN SODIUM,PORCINE 5,000 UNITS/ML VIAL SQ SCH ×4 (00:30→23:26)
[2023-02-02 04:00] VITALS: BP 89/50; PULSE 57; RESP 16; TEMP 98.2
[2023-02-02 07:26] VITALS: BP 98/65; PULSE 82; RESP 17; TEMP 98.6
[2023-02-02] MEDS: RIFAMPIN 300 MG CAPSULE PO SCH (08:29)
[2023-02-02] MEDS: DOCUSATE SODIUM 100 MG CAPSULE PO SCH ×2 (08:29→20:49)
[2023-02-02] MEDS: PYRIDOXINE HCL 50 MG TABLET PO SCH (08:29)
[2023-02-02] MEDS: ETHAMBUTOL HCL 400 MG TABLET PO SCH (08:29)
[2023-02-02] MEDS: ISONIAZID 300 MG TABLET PO SCH (08:29)
[2023-02-02] MEDS: PYRAZINAMIDE 500 MG TABLET PO SCH (08:30)
[2023-02-02 16:30] VITALS: BP 97/58; PULSE 88; RESP 18; TEMP 98.2
[2023-02-02 20:00] VITALS: BP 96/65; PULSE 94; RESP 18; TEMP 98.8
[2023-02-02] MEDS: OLANZapine 5 MG TABLET PO SCH (20:49)
[2023-02-02] MEDS: ACETAMINOPHEN 325 MG TABLET PO PRN (20:49)
[2023-02-03] VITALS: BP 96/54; PULSE 83; RESP 16; TEMP 98.1
[2023-02-03 04:00] VITALS: BP 97/50; PULSE 89; RESP 17; TEMP 97.9
[2023-02-03 08:01] VITALS: BP 93/51; PULSE 91; RESP 19; TEMP 98.4
[2023-02-03] MEDS: PYRAZINAMIDE 500 MG TABLET PO SCH (09:14)
[2023-02-03] MEDS: ETHAMBUTOL HCL 400 MG TABLET PO SCH (09:15)
[2023-02-03] MEDS: RIFAMPIN 300 MG CAPSULE PO SCH (09:18)
[2023-02-03] MEDS: DOCUSATE SODIUM 100 MG CAPSULE PO SCH ×2 (09:19→20:41)
[2023-02-03] MEDS: PYRIDOXINE HCL 50 MG TABLET PO SCH (09:19)
[2023-02-03] MEDS: ISONIAZID 300 MG TABLET PO SCH (09:19)
[2023-02-03] MEDS: HEPARIN SODIUM,PORCINE 5,000 UNITS/ML VIAL SQ SCH ×2 (09:20→16:50)
[2023-02-03 11:45] VITALS: BP 98/53; PULSE 86; RESP 18; TEMP 98.4
[2023-02-03 15:47] VITALS: BP 99/54; PULSE 87; RESP 19; TEMP 98.4
[2023-02-03 20:00] VITALS: BP 95/52; PULSE 89; RESP 18; TEMP 97.7
[2023-02-03] MEDS: OLANZapine 5 MG TABLET PO SCH (20:41)
[2023-02-04 04:00] VITALS: BP 91/49; PULSE 91; RESP 20; TEMP 98.7
[2023-02-04] MEDS: DOCUSATE SODIUM 100 MG CAPSULE PO SCH ×2 (08:10→21:35)
[2023-02-04] MEDS: RIFAMPIN 300 MG CAPSULE PO SCH (08:10)
[2023-02-04] MEDS: ETHAMBUTOL HCL 400 MG TABLET PO SCH (08:10)
[2023-02-04] MEDS: HEPARIN SODIUM,PORCINE 5,000 UNITS/ML VIAL SQ SCH ×3 (08:10→15:40)
[2023-02-04] MEDS: PYRAZINAMIDE 500 MG TABLET PO SCH (08:10)
[2023-02-04] MEDS: ISONIAZID 300 MG TABLET PO SCH (08:10)
[2023-02-04] MEDS: PYRIDOXINE HCL 50 MG TABLET PO SCH (08:10)
[2023-02-04 08:45] VITALS: BP 97/59; PULSE 63; RESP 19; TEMP 97.8
[2023-02-04 12:01] VITALS: BP 96/48; PULSE 84; RESP 19; TEMP 98.5
[2023-02-04 16:00] VITALS: BP 100/57; PULSE 79; RESP 18; TEMP 98.2
[2023-02-04 20:00] VITALS: BP 99/65; PULSE 79; RESP 18; TEMP 98.6
[2023-02-04] MEDS: OLANZapine 5 MG TABLET PO SCH (21:35)
[2023-02-05 04:00] VITALS: BP 100/62; PULSE 84; RESP 19; TEMP 98.5
[2023-02-05 08:25] VITALS: BP 87/56; RESP 18; TEMP 98
[2023-02-05] MEDS: HEPARIN SODIUM,PORCINE 5,000 UNITS/ML VIAL SQ SCH ×4 (09:00→23:49)
[2023-02-05] MEDS: PYRIDOXINE HCL 50 MG TABLET PO SCH (09:03)
[2023-02-05] MEDS: RIFAMPIN 300 MG CAPSULE PO SCH (09:03)
[2023-02-05] MEDS: DOCUSATE SODIUM 100 MG CAPSULE PO SCH ×2 (09:03→21:41)
[2023-02-05] MEDS: ISONIAZID 300 MG TABLET PO SCH (09:04)
[2023-02-05] MEDS: ETHAMBUTOL HCL 400 MG TABLET PO SCH (09:05)
[2023-02-05] MEDS: PYRAZINAMIDE 500 MG TABLET PO SCH (09:05)
[2023-02-05 12:00] VITALS: BP 98/58; PULSE 80; RESP 18; TEMP 98
[2023-02-05 16:38] VITALS: BP 102/63; PULSE 62; RESP 18; TEMP 98
[2023-02-05] MEDS: ACETAMINOPHEN 325 MG TABLET PO PRN (16:51)
[2023-02-05 20:22] VITALS: BP 102/59; PULSE 89; RESP 18; TEMP 98.1
[2023-02-05] MEDS: OLANZapine 5 MG TABLET PO SCH (21:41)
[2023-02-06] VITALS (7 sets, daily range): BP systolic 95–118; BP diastolic 47–76; PULSE 67–91; RESP 18; TEMP 98–98.9
[2023-02-06] MEDS: ETHAMBUTOL HCL 400 MG TABLET PO SCH (08:45)
[2023-02-06] MEDS: PYRAZINAMIDE 500 MG TABLET PO SCH (08:45)
[2023-02-06] MEDS: DOCUSATE SODIUM 100 MG CAPSULE PO SCH ×2 (08:46→20:17)
[2023-02-06] MEDS: ISONIAZID 300 MG TABLET PO SCH (08:46)
[2023-02-06] MEDS: PYRIDOXINE HCL 50 MG TABLET PO SCH (08:46)
[2023-02-06] MEDS: HEPARIN SODIUM,PORCINE 5,000 UNITS/ML VIAL SQ SCH ×3 (08:46→23:52)
[2023-02-06] MEDS: RIFAMPIN 300 MG CAPSULE PO SCH (08:46)
[2023-02-06 19:30] LABS: EOSINOPHILS % (AUTO) 6.2 % (1.0-6.0); HEMOGLOBIN 9.1 g/dL (12.0-16.0); MEAN CORPUSCULAR VOLUME 75 fL (80-100); MONOCYTES # (AUTO) 0.5 K/uL (0.1-1.0)
[2023-02-06 19:54] LABS: BASOPHILS % (AUTO) 1.2 % (0.0-2.0); HEMATOCRIT 28.6 % (36-46); LYMPHOCYTES # (AUTO) 1.9 K/uL (1.0-4.8); LYMPHOCYTES % (AUTO) 27.6 % (22.0-44.0); MEAN CORPUSCULAR HEMOGLOBIN 23.8 pg (26.0-34.0); MEAN CORPUSCULAR HGB CONC 31.7 G/dL (31.0-37.0); MONOCYTES % (AUTO) 7.6 % (2.0-9.0); NEUTROPHILS # (AUTO) 3.9 K/uL (1.8-7.7); NEUTROPHILS % (AUTO) 57.4 % (40.0-70.0); PLATELET COUNT (AUTO) 369 K/uL (150-450); RED BLOOD CELL COUNT(AUTO) 3.82 MIL/uL (4.00-5.20); RED CELL DISTRIBUTION WIDTH 26.2 % (11.5-14.5); WHITE BLOOD COUNT (AUTO) 6.9 K/uL (4.5-11.0)
[2023-02-06 19:55] LABS: ANION GAP 9 mmol/L (8-16); CALCIUM, TOTAL 9.1 mg/dL (8.8-10.5); CARBON DIOXIDE 28 mmol/L (22-29); CHLORIDE 102 mmol/L (98-107); CREATININE 0.78 mg/dL (0.60-1.30); GLOMERULAR FILTR. RATE CALC > 60 mL/min (>60); GLUCOSE,RANDOM 143 mg/dL (70-110); POTASSIUM 4.1 mmol/L (3.5-5.1); SODIUM SERUM 139 mmol/L (136-145); UREA NITROGEN, BLOOD 18 mg/dL (7-18)
[2023-02-06 20:00] LABS: ALANINE AMINOTRANSFERASE 15 U/L (12-78); ALBUMIN 2.6 g/dL (3.4-5.0); ALKALINE PHOSPHATASE 77 U/L (46-116); ASPARTATE AMINOTRANSFERASE 16 U/L (15-37); TOTAL PROTEIN, SERUM 8.1 g/dL (6.4-8.2)
[2023-02-06] MEDS: OLANZapine 5 MG TABLET PO SCH (20:17)
[2023-02-06 20:28] LABS: RBC MORPHOLOGY COMMENT ABNORMAL RBC MORPH
[2023-02-06 20:36] LABS: BILIRUBIN,TOTAL 0.1 mg/dL (0.1-1.0)
[2023-02-07 00:24] VITALS: BP 91/57; PULSE 84; RESP 18; TEMP 98.7
[2023-02-07 05:23] VITALS: BP 107/63; PULSE 77; RESP 18; TEMP 98.6
[2023-02-07 08:13] VITALS: BP 137/78; PULSE 65; RESP 19; TEMP 98.3
[2023-02-07] MEDS: HEPARIN SODIUM,PORCINE 5,000 UNITS/ML VIAL SQ SCH ×3 (08:50→23:28)
[2023-02-07] MEDS: PYRAZINAMIDE 500 MG TABLET PO SCH (08:51)
[2023-02-07] MEDS: ISONIAZID 300 MG TABLET PO SCH (08:52)
[2023-02-07] MEDS: DOCUSATE SODIUM 100 MG CAPSULE PO SCH ×2 (08:52→20:12)
[2023-02-07] MEDS: PYRIDOXINE HCL 50 MG TABLET PO SCH (08:52)
[2023-02-07] MEDS: ETHAMBUTOL HCL 400 MG TABLET PO SCH (08:53)
[2023-02-07] MEDS: RIFAMPIN 300 MG CAPSULE PO SCH (08:54)
[2023-02-07 11:17] VITALS: BP 118/68; PULSE 66; RESP 18; TEMP 98.6
[2023-02-07 15:14] VITALS: BP 83/48; PULSE 71; RESP 19; TEMP 98
[2023-02-07 20:03] VITALS: BP 91/60; PULSE 87; RESP 18; TEMP 98.8
[2023-02-07] MEDS: OLANZapine 5 MG TABLET PO SCH (20:12)
[2023-02-08 00:19] VITALS: BP 100/64; PULSE 84; RESP 18; TEMP 98.5
[2023-02-08 04:31] VITALS: BP 98/61; PULSE 78; RESP 18; TEMP 98.4
[2023-02-08 07:28] VITALS: BP 99/60; PULSE 84; RESP 18; TEMP 98.8
[2023-02-08] MEDS: ISONIAZID 300 MG TABLET PO SCH (08:34)
[2023-02-08] MEDS: HEPARIN SODIUM,PORCINE 5,000 UNITS/ML VIAL SQ SCH ×2 (08:34→16:02)
[2023-02-08] MEDS: DOCUSATE SODIUM 100 MG CAPSULE PO SCH ×2 (08:35→20:09)
[2023-02-08] MEDS: PYRIDOXINE HCL 50 MG TABLET PO SCH (08:35)
[2023-02-08] MEDS: RIFAMPIN 300 MG CAPSULE PO SCH (08:35)
[2023-02-08] MEDS: ETHAMBUTOL HCL 400 MG TABLET PO SCH (08:37)
[2023-02-08] MEDS: PYRAZINAMIDE 500 MG TABLET PO SCH (08:37)
[2023-02-08 12:15] VITALS: BP 96/61; PULSE 87; RESP 18; TEMP 98.5
[2023-02-08 19:28] VITALS: BP 104/69; PULSE 83; RESP 18; TEMP 98.5
[2023-02-08] MEDS: OLANZapine 5 MG TABLET PO SCH (20:09)
[2023-02-08 21:28] VITALS: BP 103/56; PULSE 88; RESP 18; TEMP 99
[2023-02-09] MEDS: HEPARIN SODIUM,PORCINE 5,000 UNITS/ML VIAL SQ SCH ×3 (00:32→16:17)
[2023-02-09 04:48] VITALS: BP 91/58; PULSE 76; RESP 18; TEMP 98.3
[2023-02-09] MEDS: PYRIDOXINE HCL 50 MG TABLET PO SCH (08:23)
[2023-02-09] MEDS: ISONIAZID 300 MG TABLET PO SCH (08:23)
[2023-02-09] MEDS: DOCUSATE SODIUM 100 MG CAPSULE PO SCH ×2 (08:23→20:40)
[2023-02-09] MEDS: ETHAMBUTOL HCL 400 MG TABLET PO SCH (08:24)
[2023-02-09] MEDS: PYRAZINAMIDE 500 MG TABLET PO SCH (08:24)
[2023-02-09] MEDS: RIFAMPIN 300 MG CAPSULE PO SCH (08:24)
[2023-02-09 08:32] VITALS: BP 101/60; PULSE 78; RESP 18; TEMP 98.4
[2023-02-09 15:37] VITALS: BP 100/64; PULSE 82; RESP 18; TEMP 98.3
[2023-02-09] MEDS ORDERED: SODIUM CHLORIDE 3% 15 ML NEB SOLUTION NEB ONE (15:41)
[2023-02-09 20:13] VITALS: BP 98/62; PULSE 85; RESP 18; TEMP 98
[2023-02-09] MEDS: OLANZapine 5 MG TABLET PO SCH (20:40)
[2023-02-10] MEDS: HEPARIN SODIUM,PORCINE 5,000 UNITS/ML VIAL SQ SCH ×3 (00:17→16:05)
[2023-02-10] MEDS ORDERED: 0.9% SODIUM CHLORIDE 5 ML NEB SOLUTION NEB ONE (02:59)
[2023-02-10] MEDS ORDERED: SODIUM CHLORIDE 3% 15 ML NEB SOLUTION NEB ONE (02:59)
[2023-02-10 05:40] VITALS: BP 96/56; PULSE 78; RESP 18; TEMP 98.8
[2023-02-10] MEDS: PYRIDOXINE HCL 50 MG TABLET PO SCH (08:55)
[2023-02-10] MEDS: ETHAMBUTOL HCL 400 MG TABLET PO SCH (08:56)
[2023-02-10] MEDS: ISONIAZID 300 MG TABLET PO SCH (08:56)
[2023-02-10] MEDS: RIFAMPIN 300 MG CAPSULE PO SCH (08:56)
[2023-02-10] MEDS: DOCUSATE SODIUM 100 MG CAPSULE PO SCH ×2 (08:57→20:46)
[2023-02-10] MEDS: PYRAZINAMIDE 500 MG TABLET PO SCH (08:57)
[2023-02-10 09:59] VITALS: BP 98/58; PULSE 85; RESP 18; TEMP 98.7
[2023-02-10] MEDS: OLANZapine 5 MG TABLET PO SCH (20:46)
[2023-02-10 21:03] VITALS: BP 97/58; PULSE 83; RESP 18; TEMP 98.1
[2023-02-11] MEDS: HEPARIN SODIUM,PORCINE 5,000 UNITS/ML VIAL SQ SCH ×5 (00:41→23:27)
[2023-02-11 05:38] VITALS: BP 110/70; PULSE 84; RESP 18; TEMP 98.7
[2023-02-11] MEDS: ETHAMBUTOL HCL 400 MG TABLET PO SCH (08:33)
[2023-02-11] MEDS: DOCUSATE SODIUM 100 MG CAPSULE PO SCH ×2 (08:34→21:05)
[2023-02-11] MEDS: PYRIDOXINE HCL 50 MG TABLET PO SCH (08:34)
[2023-02-11] MEDS: ISONIAZID 300 MG TABLET PO SCH (08:34)
[2023-02-11] MEDS: RIFAMPIN 300 MG CAPSULE PO SCH (08:34)
[2023-02-11] MEDS: PYRAZINAMIDE 500 MG TABLET PO SCH (08:35)
[2023-02-11 10:42] VITALS: BP 91/56; PULSE 83; RESP 18; TEMP 97.7
[2023-02-11 20:46] VITALS: BP 107/65; PULSE 82; RESP 18; TEMP 98.5
[2023-02-11] MEDS: OLANZapine 5 MG TABLET PO SCH (21:03)
[2023-02-11] MEDS: ACETAMINOPHEN 325 MG TABLET PO PRN (22:35)
[2023-02-12 04:40] VITALS: BP 95/57; PULSE 79; RESP 18; TEMP 97.8
[2023-02-12] MEDS: HEPARIN SODIUM,PORCINE 5,000 UNITS/ML VIAL SQ SCH ×2 (08:50→17:06)
[2023-02-12] MEDS: DOCUSATE SODIUM 100 MG CAPSULE PO SCH ×2 (08:50→20:16)
[2023-02-12] MEDS: RIFAMPIN 300 MG CAPSULE PO SCH (08:51)
[2023-02-12] MEDS: ISONIAZID 300 MG TABLET PO SCH (08:51)
[2023-02-12] MEDS: PYRAZINAMIDE 500 MG TABLET PO SCH (08:51)
[2023-02-12] MEDS: ETHAMBUTOL HCL 400 MG TABLET PO SCH (08:51)
[2023-02-12] MEDS: PYRIDOXINE HCL 50 MG TABLET PO SCH (08:57)
[2023-02-12 09:25] VITALS: BP 96/65; PULSE 77; RESP 20; TEMP 98.4
[2023-02-12] MEDS: OLANZapine 5 MG TABLET PO SCH (20:16)
[2023-02-12 20:48] VITALS: BP 96/56; PULSE 61; RESP 18; TEMP 98.3
[2023-02-13] MEDS: HEPARIN SODIUM,PORCINE 5,000 UNITS/ML VIAL SQ SCH ×4 (00:18→23:48)
[2023-02-13 06:26] VITALS: BP 101/59; PULSE 63; RESP 18; TEMP 97.9
[2023-02-13] MEDS: DOCUSATE SODIUM 100 MG CAPSULE PO SCH ×2 (08:16→21:14)
[2023-02-13] MEDS: ISONIAZID 300 MG TABLET PO SCH (08:17)
[2023-02-13] MEDS: ETHAMBUTOL HCL 400 MG TABLET PO SCH (08:17)
[2023-02-13] MEDS: PYRAZINAMIDE 500 MG TABLET PO SCH (08:21)
[2023-02-13] MEDS: RIFAMPIN 300 MG CAPSULE PO SCH (08:21)
[2023-02-13] MEDS: PYRIDOXINE HCL 50 MG TABLET PO SCH (08:21)
[2023-02-13 09:23] VITALS: BP 89/51; PULSE 94; RESP 19; TEMP 98.6
[2023-02-13 12:33] LABS: BASOPHILS % (AUTO) 0.3 % (0.0-2.0); EOSINOPHILS % (AUTO) 6.4 % (1.0-6.0); HEMATOCRIT 30.4 % (36-46); HEMOGLOBIN 9.8 g/dL (12.0-16.0); LYMPHOCYTES # (AUTO) 1.8 K/uL (1.0-4.8); LYMPHOCYTES % (AUTO) 24.6 % (22.0-44.0); MEAN CORPUSCULAR HGB CONC 32.1 G/dL (31.0-37.0); MEAN CORPUSCULAR VOLUME 75 fL (80-100); MONOCYTES # (AUTO) 0.6 K/uL (0.1-1.0); MONOCYTES % (AUTO) 8.6 % (2.0-9.0); NEUTROPHILS # (AUTO) 4.4 K/uL (1.8-7.7); NEUTROPHILS % (AUTO) 60.1 % (40.0-70.0); RED BLOOD CELL COUNT(AUTO) 4.07 MIL/uL (4.00-5.20); RED CELL DISTRIBUTION WIDTH 25.2 % (11.5-14.5); WHITE BLOOD COUNT (AUTO) 7.3 K/uL (4.5-11.0)
[2023-02-13 12:42] LABS: ANION GAP 10 mmol/L (8-16); CALCIUM, TOTAL 9.1 mg/dL (8.8-10.5); CARBON DIOXIDE 28 mmol/L (22-29); CHLORIDE 102 mmol/L (98-107); CREATININE 0.79 mg/dL (0.60-1.30); GLOMERULAR FILTR. RATE CALC > 60 mL/min (>60); GLUCOSE,RANDOM 111 mg/dL (70-110); POTASSIUM 3.8 mmol/L (3.5-5.1); SODIUM SERUM 140 mmol/L (136-145); UREA NITROGEN, BLOOD 15 mg/dL (7-18)
[2023-02-13 12:47] LABS: ALANINE AMINOTRANSFERASE 14 U/L (12-78); ALBUMIN 2.6 g/dL (3.4-5.0); ALKALINE PHOSPHATASE 73 U/L (46-116); ASPARTATE AMINOTRANSFERASE 15 U/L (15-37); BILIRUBIN,TOTAL 0.2 mg/dL (0.1-1.0); TOTAL PROTEIN, SERUM 7.8 g/dL (6.4-8.2)
[2023-02-13 14:27] LABS: PLATELET COUNT (AUTO) 40 K/uL (150-450); RBC MORPHOLOGY COMMENT DIMORPHIC RBC
[2023-02-13 16:00] VITALS: BP 101/61; PULSE 84; RESP 16; TEMP 98.4
[2023-02-13 17:54] LABS: BASOPHILS % (AUTO) 0.4 % (0.0-2.0); EOSINOPHILS % (AUTO) 7.8 % (1.0-6.0); HEMATOCRIT 29.9 % (36-46); HEMOGLOBIN 9.4 g/dL (12.0-16.0); LYMPHOCYTES # (AUTO) 1.6 K/uL (1.0-4.8); LYMPHOCYTES % (AUTO) 27.2 % (22.0-44.0); MEAN CORPUSCULAR HEMOGLOBIN 23.4 pg (26.0-34.0); MEAN CORPUSCULAR HGB CONC 31.5 G/dL (31.0-37.0); MEAN CORPUSCULAR VOLUME 74 fL (80-100); MONOCYTES # (AUTO) 0.5 K/uL (0.1-1.0); MONOCYTES % (AUTO) 8.4 % (2.0-9.0); NEUTROPHILS # (AUTO) 3.4 K/uL (1.8-7.7); NEUTROPHILS % (AUTO) 56.2 % (40.0-70.0); PLATELET COUNT (AUTO) 62 K/uL (150-450); RED BLOOD CELL COUNT(AUTO) 4.01 MIL/uL (4.00-5.20)
[2023-02-13 19:38] LABS: RBC MORPHOLOGY COMMENT ABNORMAL RBC MORPH
[2023-02-13 20:24] VITALS: BP 100/67; PULSE 87; RESP 18; TEMP 98.6
[2023-02-13] MEDS: OLANZapine 5 MG TABLET PO SCH (21:16)
[2023-02-14] MEDS: ZOLPIDEM TARTRATE 5 MG TABLET PO PRN ×2 (01:01→20:55)
[2023-02-14 04:27] VITALS: BP 98/63; PULSE 87; RESP 18; TEMP 98.9
[2023-02-14] MEDS: ETHAMBUTOL HCL 400 MG TABLET PO SCH (08:23)
[2023-02-14] MEDS: PYRAZINAMIDE 500 MG TABLET PO SCH (08:23)
[2023-02-14] MEDS: PYRIDOXINE HCL 50 MG TABLET PO SCH (08:23)
[2023-02-14] MEDS: HEPARIN SODIUM,PORCINE 5,000 UNITS/ML VIAL SQ SCH ×3 (08:23→22:58)
[2023-02-14] MEDS: RIFAMPIN 300 MG CAPSULE PO SCH (08:23)
[2023-02-14] MEDS: DOCUSATE SODIUM 100 MG CAPSULE PO SCH ×2 (08:23→20:55)
[2023-02-14] MEDS: ISONIAZID 300 MG TABLET PO SCH (08:23)
[2023-02-14 11:08] VITALS: BP 94/56; PULSE 89; RESP 18; TEMP 98.3
[2023-02-14 20:33] VITALS: BP 122/71; PULSE 87; RESP 20; TEMP 98.5
[2023-02-14] MEDS: OLANZapine 5 MG TABLET PO SCH (20:55)
[2023-02-14] MEDS: ACETAMINOPHEN 325 MG TABLET PO PRN (21:12)
[2023-02-15 04:19] VITALS: BP 119/73; PULSE 84; RESP 18; TEMP 97.9
[2023-02-15] MEDS: HEPARIN SODIUM,PORCINE 5,000 UNITS/ML VIAL SQ SCH ×2 (08:00→16:00)
[2023-02-15 08:13] VITALS: BP 122/74; PULSE 83; RESP 18; TEMP 98.1
[2023-02-15] MEDS: PYRAZINAMIDE 500 MG TABLET PO SCH (08:55)
[2023-02-15] MEDS: DOCUSATE SODIUM 100 MG CAPSULE PO SCH (08:55)
[2023-02-15] MEDS: ISONIAZID 300 MG TABLET PO SCH (08:55)
[2023-02-15] MEDS: PYRIDOXINE HCL 50 MG TABLET PO SCH (08:55)
[2023-02-15] MEDS: ETHAMBUTOL HCL 400 MG TABLET PO SCH (08:55)
[2023-02-15] MEDS: RIFAMPIN 300 MG CAPSULE PO SCH (08:55)
== END 2023-02-15 18:15 | DRG 178 ==
LOC: EMS 19:34 → AHU 23:39 → 5N 01-19 13:14 → 6S 02-08 21:00
PROVIDERS: ADMIT Internal Medicine; ATTEND Internal Medicine
DX: A15.0 Tuberculosis of lung (principal); E44.0 Moderate protein-calorie malnutrition; Z20.822 Contact with and (suspected) exposure to COVID-19; D64.9 Anemia, unspecified; J90 Pleural effusion, not elsewhere classified; F20.9 Schizophrenia, unspecified; F39 Unspecified mood [affective] disorder; T37 Poisoning by, adverse effect of and underdosing of other systemic anti-infectives and antiparasitics; Y92.148 Other place in prison as the place of occurrence of the external cause; Z68.23 Body mass index [BMI] 23.0-23.9, adult
CPT/HCPCS: 80048; 80053; 82248; 83735; 85025; 87015; 87081; 87206; 94640; 99285; G0378; J1644; J2405; 36415-L1; 36415-TC

== ENCOUNTER → 2023-07-04 | Outpatient (CLI) | payer OTHER | END | disposition home or self-care (01) | LOC: RADMN 08:18 | PROVIDERS: ATTEND Internal Medicine | DX: A15.0 Tuberculosis of lung (principal); I25.10 Atherosclerotic heart disease of native coronary artery without angina pectoris; M47.814 Spondylosis without myelopathy or radiculopathy, thoracic region | CPT/HCPCS: 71250 ==

== ENCOUNTER → 2023-08-08 | Outpatient (CLI) | payer OTHER | END | disposition home or self-care (01) | LOC: RADMN 12:20 | PROVIDERS: ATTEND Internal Medicine | DX: A15.0 Tuberculosis of lung (principal); R91.1 Solitary pulmonary nodule; R59.0 Localized enlarged lymph nodes; R91.8 Other nonspecific abnormal finding of lung field | CPT/HCPCS: 71250 ==